=== PATIENT | female | born 1995 | race Caucasian/White ===

== ENCOUNTER 2022-08-10 11:54 | Inpatient (IN) | payer BC ==
[2022-08-10] MEDS ORDERED: Lidocaine 1% 50 ML MDV INJECT PRN (12:39)
[2022-08-10] MEDS ORDERED: Tranexamic Acid 1,000 MG in Sodium Chloride 0.9% 100 ML IV PRN (12:39)
[2022-08-10] MEDS ORDERED: Sodium Chloride 0.9% 20 ML SDV IV PRN (12:39)
[2022-08-10] MEDS ORDERED: Carboprost Tromethamine 250 MCG/1 ML Amp IM PRN (12:39)
[2022-08-10] MEDS ORDERED: Sodium Chloride 0.9% 10 ML Syringe FLUSH PRN (12:39)
[2022-08-10] MEDS ORDERED: Sodium Chloride 0.9% 2.5 ML Syringe FLUSH PRN (12:39)
[2022-08-10] MEDS ORDERED: Misoprostol 200 MCG Tab PO PRN (12:39)
[2022-08-10] MEDS ORDERED: Ondansetron 4 MG/2 ML SDV IVPUSH PRN (12:39)
[2022-08-10] MEDS ORDERED: Methylergonovine 0.2 MG/1 ML Amp IM PRN (12:39)
[2022-08-10] MEDS ORDERED: Butorphanol 1 MG/ML SDV IVPUSH PRN (12:39)
[2022-08-10] MEDS ORDERED: Water For Irrigation,Sterile 1,000 ML Container IRR PRN (12:39)
[2022-08-10] MEDS ORDERED: Oxytocin/0.9 % Sodium Chloride 30 UNIT/500 ML BAG IV SCH ×2 (12:45→13:00)
[2022-08-10] MEDS ORDERED: Terbutaline 1 MG/ML SDV SUBCUT PRN (12:46)
[2022-08-10] MEDS ORDERED: ePHEDrine 50 MG/ML SDV IVPUSH PRN ×2 (12:58)
[2022-08-10] MEDS ORDERED: Phenylephrine HCl 0.5 MG/5 ML AMP IVPUSH PRN (12:58)
[2022-08-10] MEDS ORDERED: Ropivacaine HCl/PF 400 MG in Premix Bag 1 BAG EPIDUR SCH (13:00)
[2022-08-10] MEDS ORDERED: Ampicillin 2 GM in Sodium Chloride 0.9% 100 ML IV ONE (13:00)
[2022-08-10 13:16] LABS: BLOOD UREA NITROGEN,BUN 12 mg/dL (7.0-18.0); CARBON DIOXIDE,CO2 21.6 mmol/L (21.0-32.0); CHLORIDE,CL 106 mmol/L (98-107); GLUCOSE RANDOM 104 mg/dL (74-106); POTASSIUM,K 3.9 mmol/L (3.5-5.1); SODIUM,NA 139 mmol/L (136-145)
[2022-08-10 13:19] LABS: ESTIMATED GFR 121 mL/min (>60)
[2022-08-10] MEDS: Lactated Ringers 1,000 ML IV SCH ×2 (13:19→21:15)
[2022-08-10] MEDS: Ampicillin 1 GM in Sodium Chloride 0.9% 50 ML IV SCH ×2 (17:18→21:30)
[2022-08-11] MEDS: Ampicillin 1 GM in Sodium Chloride 0.9% 50 ML IV SCH ×2 (01:33→05:15)
[2022-08-11] MEDS ORDERED: Dexmedetomidine 200 MCG/2 ML SDV ONE (04:58)
[2022-08-11] MEDS: Lactated Ringers 1,000 ML IV SCH (05:15)
[2022-08-11] MEDS ORDERED: Oxytocin/0.9 % Sodium Chloride 30 UNIT/500 ML BAG IV SCH (06:30)
[2022-08-11] MEDS ORDERED: Ibuprofen 400 MG Tab PO PRN (08:41)
[2022-08-11] MEDS ORDERED: Acetaminophen 500 MG Tab PO PRN ×2 (08:41)
[2022-08-11] MEDS ORDERED: Lanolin 100% Cream 7 GM Tube TOP PRN (08:41)
[2022-08-11] MEDS ORDERED: Benzocaine/Menthol 20%-0.5% Spray 78 GM Cannister TOP PRN (08:41)
[2022-08-11] MEDS ORDERED: Ibuprofen 800 MG Tab PO PRN (08:41)
[2022-08-11] MEDS ORDERED: oxyCODONE 5 MG Tab PO PRN (08:41)
[2022-08-11] MEDS ORDERED: Witch Hazel Medicated Pads 40/Jar TOP PRN (08:41)
[2022-08-11] MEDS ORDERED: Docusate Sodium 100 MG Cap PO PRN (08:41)
[2022-08-11] MEDS ORDERED: Bisacodyl 10 MG Supp RECTAL PRN (08:41)
[2022-08-11] MEDS ORDERED: Ampicillin 1 GM in Sodium Chloride 0.9% 50 ML IV SCH (09:15)
== END 2022-08-12 12:30 | disposition home or self-care (01) | DRG 560 ==
LOC: MW.OBCHECK 11:54 → MW.OB 12:39 → OBSVTOIN 08-11 08:41 → MW.OB 08-11 13:52
PROVIDERS: ADMIT Obstetrics & Gynecology; ATTEND Obstetrics & Gynecology
PROC: 10E0XZZ Delivery of Products of Conception, External Approach (ICD-10-PCS; principal; 2022-08-11)
PROC: 10907ZC Drainage of Amniotic Fluid, Therapeutic from Products of Conception, Via Natural or Artificial Opening (ICD-10-PCS; 2022-08-11)
PROC: 3E033VJ Introduction of Other Hormone into Peripheral Vein, Percutaneous Approach (ICD-10-PCS; 2022-08-11)
PROC: 3E0R3BZ Introduction of Anesthetic Agent into Spinal Canal, Percutaneous Approach (ICD-10-PCS; 2022-08-11)
PROC: 00HU33Z Insertion of Infusion Device into Spinal Canal, Percutaneous Approach (ICD-10-PCS; 2022-08-11)
DX: O13.4 Gestational [pregnancy-induced] hypertension without significant proteinuria, complicating childbirth (principal); O99.824 Streptococcus B carrier state complicating childbirth; Z3A.38 38 weeks gestation of pregnancy; Z37.0 Single live birth
CPT/HCPCS: 36415; 51702; 59025; 59409; 80053; 82570; 82803; 84156; 84550; 85014; 85018; 85027; 86592; 86850; 86900; 86901; A9270-GY; J0290; J2590; J3490; J7120

== ENCOUNTER 2024-08-18 16:43 | Inpatient (IN) | payer BC ==
[2024-08-18 17:13] LABS: BASOPHILS ABSOLUTE AUTO 0.02 K/uL (0.00-0.20); BASOPHILS PERCENT AUTO 0.2 % (0.0-1.0); EOSINOPHILS ABSOLUTE AUTO 0.18 K/uL (0.00-0.45); EOSINOPHILS PERCENT AUTO 1.7 % (0.0-6.0); HEMATOCRIT 33.5 % (37.0-47.0); HEMOGLOBIN 11.4 g/dL (12.0-16.0); IMMATURE GRAN ABSOLUTE AUTO 0.07 K/uL (0.00-0.05); IMMATURE GRAN PERCENT AUTO 0.7 % (0.0-0.4); LYMPHOCYTES ABSOLUTE AUTO 1.63 K/uL (1.00-4.80); LYMPHOCYTES PERCENT AUTO 15.6 % (24.0-44.0); MEAN CORPUSCULAR HEMOGLOBIN 28.4 pg (28.0-32.0); MEAN CORPUSCULAR VOLUME 83.5 fL (83.0-99.0); MEAN PLATELET VOLUME 11.2 fL (9.4-12.3); MONOCYTES ABSOLUTE AUTO 0.67 K/uL (0.00-0.80); MONOCYTES PERCENT AUTO 6.4 % (0.0-8.0); NEUTROPHILS ABSOLUTE AUTO 7.87 K/uL (1.80-7.70); NEUTROPHILS PERCENT AUTO 75.4 % (41.0-71.0); PLATELET COUNT,PLT 141 K/uL (150-400); RED BLOOD CELL COUNT 4.01 M/uL (4.10-5.30); WHITE BLOOD CELL COUNT,WBC 10.44 K/uL (3.9-11.3)
[2024-08-18 17:48] LABS: A/G RATIO 0.8 (0.9-1.6); ALBUMIN 2.8 g/dL (3.4-5.0); BILIRUBIN TOTAL 0.5 mg/dL (0.2-1.0); CALCIUM 8.8 mg/dL (8.5-10.1); CREATININE 0.7 mg/dL (0.6-1.0); EST CRCL DRUG DOSING (CG) 118.54 mL/min; POTASSIUM,K 3.8 mmol/L (3.5-5.1); PROTEIN TOTAL,TP 6.4 g/dL (6.4-8.2); URIC ACID 3.5 mg/dL (2.6-7.2)
[2024-08-18] MEDS ORDERED: Lidocaine 1% 50 ML MDV INJECT PRN (18:32)
[2024-08-18] MEDS ORDERED: Misoprostol 200 MCG Tab PO PRN (18:32)
[2024-08-18] MEDS ORDERED: Sodium Chloride 0.9% 2.5 ML Syringe FLUSH PRN (18:32)
[2024-08-18] MEDS ORDERED: Methylergonovine 0.2 MG/1 ML Amp IM PRN (18:32)
[2024-08-18] MEDS ORDERED: Terbutaline 1 MG/ML SDV SUBCUT PRN ×2 (18:32→22:50)
[2024-08-18] MEDS ORDERED: Carboprost Tromethamine 250 MCG/1 mL Vial IM PRN (18:32)
[2024-08-18] MEDS ORDERED: Water For Irrigation,Sterile 1,000 ML Container IRR PRN (18:32)
[2024-08-18] MEDS ORDERED: Sodium Chloride 0.9% 20 ML SDV IV PRN (18:32)
[2024-08-18] MEDS ORDERED: Ondansetron 4 MG/2 ML SDV IVPUSH PRN (18:32)
[2024-08-18] MEDS ORDERED: Butorphanol 1 MG/ML SDV IVPUSH PRN (18:32)
[2024-08-18] MEDS ORDERED: Sodium Chloride 0.9% 10 ML Syringe FLUSH PRN (18:32)
[2024-08-18] MEDS ORDERED: Oxytocin/0.9 % Sodium Chloride 30 UNIT/500 ML BAG IV SCH (18:45)
[2024-08-18] MEDS: Misoprostol 25 MCG (1/4 of 100 MCG) Tab VAG PRN (23:47)
[2024-08-19] MEDS: Lactated Ringers 1,000 ML IV SCH (00:10)
[2024-08-19] MEDS: Misoprostol 25 MCG (1/4 of 100 MCG) Tab VAG PRN (06:05)
[2024-08-19] MEDS: Oxytocin/0.9 % Sodium Chloride 30 UNIT/500 ML BAG IV SCH (10:52)
[2024-08-19] MEDS ORDERED: Bupivacaine 0.5% 10 ML SDV ONE (13:40)
[2024-08-19] MEDS ORDERED: Phenylephrine HCl In 0.9% NaCl 1 MG/10 ML Syringe ONE (13:40)
[2024-08-19] MEDS: Ropivacaine HCl/PF 200 ML ONE (13:59)
[2024-08-19] MEDS ORDERED: ePHEDrine 50 MG/ML SDV IM PRN (14:03)
[2024-08-19] MEDS ORDERED: Phenylephrine HCl In 0.9% NaCl 1 MG/10 ML Syringe IVPUSH PRN (14:03)
[2024-08-19] MEDS ORDERED: ePHEDrine 50 MG/ML SDV IVPUSH PRN (14:03)
[2024-08-19] MEDS ORDERED: Ropivacaine HCl/PF 400 MG in Premix Bag 1 BAG EPIDUR SCH (14:15)
[2024-08-19] MEDS ORDERED: dexmedeTOMIDine HCl 200 MCG/2 ML SDV EPIDUR SCH (14:15)
[2024-08-19] MEDS ORDERED: Docusate Sodium 100 MG Cap PO PRN (18:03)
[2024-08-19] MEDS ORDERED: Lanolin 100% Cream 7 GM Tube TOP PRN (18:03)
[2024-08-19] MEDS ORDERED: oxyCODONE 5 MG Tab PO PRN (18:03)
[2024-08-19 18:48] LABS: PH,UMBILICAL ARTERIAL 7.28 (7.18-7.38); PH,UMBILICAL VENOUS 7.3 (7.25-7.45)
[2024-08-19] MEDS: Benzocaine/Menthol 20%-0.5% Spray 78 GM Cannister TOP PRN (19:49)
[2024-08-19] MEDS: Witch Hazel Medicated Pads 40/Jar TOP PRN (19:49)
[2024-08-20] MEDS: Ibuprofen 800 MG Tab PO PRN (05:01)
[2024-08-20] MEDS: Acetaminophen 500 MG Tab PO PRN (05:02)
[2024-08-20 06:37] LABS: BASOPHILS ABSOLUTE AUTO 0.02 K/uL (0.00-0.20); BASOPHILS PERCENT AUTO 0.2 % (0.0-1.0); EOSINOPHILS ABSOLUTE AUTO 0.25 K/uL (0.00-0.45); HEMATOCRIT 30.1 % (37.0-47.0); HEMOGLOBIN 10.3 g/dL (12.0-16.0); IMMATURE GRAN ABSOLUTE AUTO 0.09 K/uL (0.00-0.05); IMMATURE GRAN PERCENT AUTO 0.7 % (0.0-0.4); LYMPHOCYTES ABSOLUTE AUTO 2.16 K/uL (1.00-4.80); LYMPHOCYTES PERCENT AUTO 17.1 % (24.0-44.0); MEAN CORPUSCULAR HEMOGLOBIN 28.8 pg (28.0-32.0); MEAN CORPUSCULAR HGB CONC 34.2 g/dL (32.0-36.0); MEAN CORPUSCULAR VOLUME 84.1 fL (83.0-99.0); MEAN PLATELET VOLUME 11.3 fL (9.4-12.3); MONOCYTES ABSOLUTE AUTO 1.12 K/uL (0.00-0.80); MONOCYTES PERCENT AUTO 8.9 % (0.0-8.0); NEUTROPHILS ABSOLUTE AUTO 9.01 K/uL (1.80-7.70); NEUTROPHILS PERCENT AUTO 71.1 % (41.0-71.0); PLATELET COUNT,PLT 149 K/uL (150-400); RED BLOOD CELL COUNT 3.58 M/uL (4.10-5.30); WHITE BLOOD CELL COUNT,WBC 12.65 K/uL (3.9-11.3)
== END 2024-08-20 22:50 | disposition home or self-care (01) | DRG 560 ==
LOC: MW.OBCHECK 16:43 → MW.OB 17:41 → OBSVTOIN 08-19 17:41 → MW.OB 08-19 22:10
PROVIDERS: ADMIT Obstetrics & Gynecology; ATTEND Obstetrics & Gynecology
PROC: 10E0XZZ Delivery of Products of Conception, External Approach (ICD-10-PCS; principal; 2024-08-19)
PROC: 3E0R3BZ Introduction of Anesthetic Agent into Spinal Canal, Percutaneous Approach (ICD-10-PCS; 2024-08-19)
PROC: 10907ZC Drainage of Amniotic Fluid, Therapeutic from Products of Conception, Via Natural or Artificial Opening (ICD-10-PCS; 2024-08-19)
PROC: 3E0P7VZ Introduction of Hormone into Female Reproductive, Via Natural or Artificial Opening (ICD-10-PCS; 2024-08-19)
PROC: 3E033VJ Introduction of Other Hormone into Peripheral Vein, Percutaneous Approach (ICD-10-PCS; 2024-08-19)
DX: O11.4 Pre-existing hypertension with pre-eclampsia, complicating childbirth (principal); O26.643 Intrahepatic cholestasis of pregnancy, third trimester; O99.344 Other mental disorders complicating childbirth; O98.52 Other viral diseases complicating childbirth; O99.214 Obesity complicating childbirth; Z37.0 Single live birth; Z98.890 Other specified postprocedural states; Z3A.36 36 weeks gestation of pregnancy; Z87.891 Personal history of nicotine dependence; Z79.82 Long term (current) use of aspirin; Z79.899 Other long term (current) drug therapy
CPT/HCPCS: 01967; 36415; 51702; 59025; 59409; 80053; 82803; 84550; 85025; 86592; 86850; 86900; 86901; A9270-GY; J0665; J2371; J2590; J2795; J7120